=== PATIENT | female | born 1985 | race Two or more races ===

== ENCOUNTER 2017-03-18 09:52 | Emergency (ER) | payer MEDICAID ==
[~2017-03-18] VITALS: Ht 162.6 cm; Wt 59.9 kg
[2017-03-18 09:52] VITALS: BP 131/80
== END 2017-03-18 11:13 | disposition home or self-care (01) ==
LOC: ER 09:54
DX: R51 Headache (principal); E03.9 Hypothyroidism, unspecified
CPT/HCPCS: 70450; 99284; A4606; Z7610